=== PATIENT | male | born 1940 | race Caucasian/White ===

== ENCOUNTER 2018-02-13 16:50 | Inpatient (IN) ==
[2018-02-14] MEDS ORDERED: Acetaminophen 325 MG TABLET PO PRN (15:08)
[2018-02-14] MEDS ORDERED: Mag Hydrox/Al Hydrox/Simeth 30 ML UDC PO PRN (15:08)
[2018-02-14] MEDS: *HR* Enoxaparin 80 MG/0.8 ML SYRINGE SQ SCH (17:44)
[2018-02-14] MEDS ORDERED: *HR* Warfarin 5 MG TABLET PO ONE (18:00)
[2018-02-14] MEDS ORDERED: Warfarin perPT PO PRN (18:00)
[2018-02-15] MEDS: *HR* Enoxaparin 80 MG/0.8 ML SYRINGE SQ SCH ×2 (05:09→17:37)
[2018-02-15 05:59] LABS: Basophils # 0.1 K/mcL (0.0-0.2); Basophils % 1.1 %; Eosinophils # 0.8 K/mcL (0.0-0.6); Eosinophils % 6.9 %; Hematocrit 45.9 % (37.5-50.1); Hemoglobin 15.3 g/dL (12.9-16.9); Immature Granulocytes % 0.2 % (0-4); Lymphocytes # 3.5 K/mcL (0.6-4.6); Lymphocytes % 31.1 %; Mean Corpuscular HGB Conc 33.3 g/dL (31.6-35.5); Mean Corpuscular Hemoglobin 32.6 pg (28.0-33.3); Mean Corpuscular Volume 97.9 fL (83.0-100.0); Monocytes # 1.1 K/mcL (0.0-1.3); Monocytes % 9.6 %; Neutrophils # 5.7 K/mcL (1.6-8.9); Platelet Count 293 K/mcL (140-400); Red Blood Count 4.69 M/mcL (4.19-5.50); Red Cell Distribution Width 13.9 % (11.5-14.5); Segmented Neutrophils % 51.1 %
[2018-02-15 06:00] LABS: INR 1.5; Prothrombin Time 16.5 Seconds (9.4-12.1)
[2018-02-15 06:12] LABS: BUN/Creatinine Ratio 14 (6-26); Blood Urea Nitrogen 13 mg/dL (8-23); Calcium 9.3 mg/dL (8.6-10.3); Carbon Dioxide 29 mEq/L (23-29); Chloride 105 mEq/L (98-107); Glucose 93 mg/dL (70-105); Osmolality,Calculated 282 (280-300); Sodium 136 mEq/L (136-145); eGFR For Non-African Americans > 60 (> 60)
[2018-02-15] MEDS: Aspirin Enteric Coated 81 MG Tablet PO SCH (08:08)
[2018-02-15] MEDS: Cholecalciferol (D-3) 1,000 UNIT TABLET PO SCH (08:09)
--- NOTE | 2018-02-15 10:31 | Internal Med History&Physical ---
Addendum entered and electronically signed by Peter Pringle MD 02/15/18 11:59: Omitted from my note below: The patient is in atrial fibrillation, clinically, with an irregularly irregular heartbeat. However, I hear no murmur. Addendum entered and electronically signed by Peter Pringle MD 02/15/18 11:45: I have personally performed a face to face evaluation on this patient. I have reviewed and agree with the care plan. History and Exam by me shows: Patient had a stroke. He states that the main thing was that he could not read and the right side of his vision and has been weak, ever since. He denies dizziness but does note persistent weakness and some visual change persists, as well. He notes no other intermittent symptoms since the stroke. History and physical as below, reviewed with patient. He has a history of atrial fibrillation which is apparently paroxysmal. He denies any chest symptoms or dizziness related. He wears a full plate dentures but has these at home. He has new hearing aids which interfere with his hearing as he is "getting used to them." He was told that he has early cataracts, by his hemodialysis technician. He had a lower abdominal surgery years ago which caused him to have hernias and mesh placement on both sides. Because of this he has a "button" which is coming out and has been there for years. 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 Patient has no complaint of chest discomfort, dyspnea, orthopnea, breathing problems, palpitations, nausea or vomiting, constipation or diarrhea, other changes in bowel habits, heartburn, difficulty with urination, kidney problems or kidney stones, fevers chills or sweats, rash or itching, seizures, headache or lightheadedness, heat or cold intolerance, blood problems or anemia, or other new complaints, except as mentioned above. Review of systems is otherwise negative. Examination: (Except as mentioned above): General: In no apparent distress, alert and oriented 3. Head: Atraumatic and normocephalic. Eyes: Extraocular muscles are intact, pupils equal round and reactive to light and accommodation. Sclerae anicteric. While his eye function seems normal and his visual estrada are abnormal, especially to confrontation. He states that he can see a little bit to his right buttock that it is blurry. Ears: External ears are normal to inspection and hearing is definitely diminished, even with hearing aids in place.. Nose: Patent without lesion noted. Mouth: No intraoral lesions seen. He is edentulous. Neck: Supple with trachea midline. There is no thyromegaly or adenopathy and carotids are 2+ without bruit heard. Respiratory: No use of accessory muscles. Lungs are clear throughout. Normal a irflow. Cardiovascular: Regular rate and rhythm without murmur appreciated. Abdomen: Bowel sounds are normal. No hepatosplenomegaly masses or tenderness. Obese and therefore difficult to palpate deeply. This has a ventral hernia which is easily reducible, spontaneously, and nontender. He has a small skin tag approximately 8 mm in circumference which is seemingly benign. This is located at the right lower quadrant. Extremities: No cyanosis clubbing or edema. Left fourth and fifth digit ampu tation noted. Neurological: A and O 3. Cranial nerves II through XII are intact. No focal deficits and no abnormal movements or postures. Station and gait are normal. Skin: Warm and non-diaphoretic with no lesions noted. Breasts, pelvic and rectal: Not examined. He will be evaluated for safety with ambient dilatation. Physical therapy and occupational therapy as well as recreational therapy will be instituted. I have asked speech to see him once and they will assess need for follow-up. Original Note: Date of Encounter: 02/15/18 Time of Encounter: 10:27 Assessment and Plan (1) CVA (cerebral vascular accident) Current visit: Yes Status: Acute Qualifiers: CVA mechanism: embolism Precerebral and cerebral artery: posterior cerebral artery Laterality of affected vessel: left Qualified Code(s): I63.432 - Cer ebral infarction due to embolism of left posterior cerebral artery (2) Paroxysmal A-fib Current visit: Yes Status: Acute Rate and rhythm controlled. Continue Coumadin and Lovenox. Pharmacy to dose and follow PT/INR (3) Internal carotid artery stenosis Current visit: Yes Status: Acute Carotid duplex from demonstrates right proximal ICA has severe 60 to 79% stenosis and left med ICA has a moderate 40 to 59% stenosis Qualifiers: Laterality: bilateral Qualified Code(s): I65.23 - Occlusion and stenosis of bilateral carotid arteries Internal Medicine - H&P: HPI Admitted From: Hospital to Hospital Transfer Plans for Post Hospital Care: Home History of present illness: Mr. Petty is a 77 year old male admitted to inpatient rehab unit from [facility] and [place] status post CVA of left occipital lobe, posterior medial left temp oral lobe and left PTCA territory. 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 Past medical history includes hypertension, hyperlipidemia, prediabetes, Gerd, vitamin D deficiency, degenerative disc disease in recent biliary stents removed. Patient originally presented to [facility] with decreased vision and right eye. His thought process was slower with slower reactions. He had slight weakness in his right arm and right leg which was present for several months. Patient goal is to return to home with . Patient denies any headache, fever, chills, shortness of breath, chest pain or nausea vomiting diarrhea. Maintaining appetite and hydration. Past Med Surg Social Fam HX - Past Medical History Medical history: no medical history, arthritis, hyperlipidemia, other Additional medical history: hematuria, stomach ulcer, hernia Psychiatric history: no psych history - Past Surgical History Surgical History: cholecystectomy, herniorrhaphy, orthopedic, other, splenectomy, other Additional surgical history: ercp - Social History Smoking Status: Never smoker Smokeless Tobacco Status: No Alcohol use: none Drug use: none - Family History Father Living Status: Hx Family Respiratory Disorders: Yes (emphysema) Sister Living Status: Hx Family Cancer: Yes Hx Family GI Disorders: Yes Mother Living Status: Hx Family GI Disorders: Yes (colitis) Internal Medicine - H&P: Meds Cholecalciferol (Vitamin D3) [Vitamin D3] 2,000 unit PO DAILY 12/16/14 [History] Aspirin [Lo-Dose Aspirin EC] 81 mg PO DAILY 02/24/17 [History] Atorvastatin [Lipitor] 80 mg PO HS 30 Days #60 tablet 02/14/18 [Rx] Enoxaparin [Lovenox *PHARMACY WT BASED*] 70 mg SQ BID 7 Days #14 unit 02/14/18 [Rx] Metoprolol [Lopressor] 25 mg PO BID 30 Days #60 tablet 02/14/18 [Rx] Warfarin [Coumadin] 3 mg PO DAILY@1800 #14 tablet 02/14/18 [Rx] Allergy/AdvReac Type Severity Reaction Status Date / Time No Known Allergies Allergy Verified 01/05/18 10:11 All Systems PM: A 10-system review of systems was performed and is negative for pertinent findings except as documented above in the HPI. - Constitutional Constitutional: no chills, no fever(s), no night sweats - EENT Eyes: no change in vision, no discharge, no pain, no photophobia Ears: no ear discharge, no ear pain, no tinnitus Nose, mouth and throat: no dysphagia, no nasal discharge, no neck pain, no sore throat - Cardiovascular Cardiovascular ROS IM: no chest pain, no diaphoresis, no dyspnea, no lightheadedness, no palpitations, no syncope - Respiratory Respiratory: no cough, no dyspnea, no wheezing, no excessive phlegm production - Gastrointestinal Gastrointestinal: no abdominal pain, no diarrhea, no hematemesis, no hematochezia, no melena, no nausea, no vomiting - Musculoskeletal Musculoskeletal ROS IM: no numbness, no tingling - Integumentary Integumentary IM: no rash, no unusual bruising - Neurological Neurological ROS: no confusion, no convulsions, no focal weakness, no numbness, no tingling, no tremor(s) - Hematologic/Lymphatic Hematologic/Lymphatic: no easy bruising - Constitutional Vitals: Temp Pulse Resp BP Pulse Ox 97.5 F L 96 16 104/62 94 02/15/18 07:06 02/15/18 07:06 02/15/18 07:06 02/15/18 07:06 02/15/18 07:06 General appearance: Present: cooperative, A&O X 3, pleasant, no acute distress, answers questions appropriately - Head Head exam: Present: atraumatic, normocephalic - Eye Eye exam: Present: PERRL, conjuntiva pink, sclera anicteric Pupils: Present: PERRL - Neck Neck exam general surgery: Present: supple, trachea midline. Absent: lymphadenopathy - Respiratory Respiratory exam: Present: CTAB. Absent: accessory muscle use, rales, rhonchi, wheezes - Cardiovascular Cardiovascular exam: Present: RRR, +S1, +S2. Absent: diastolic murmur, gallop, rubs, systolic murmur - GI/Abdominal GI/Abdominal exam: Present: normal bowel sounds, soft, no peritoneal signs. Absent: distended, tenderness - Extremities Exam Extremities exam: Present: warm, radial pulses palpable and symmetrical. Absent: calf tenderness, cyanotic, pedal edema - Neurological Exam Neurological exam: Present: CN II-XII intact, oriented X3, no focal deficits. Absent: pronater drift, facial droop, speech deficit - Skin Skin exam: Present: dry, intact Internal Med - H&P Results - Labs CBC & Chem 7: 02/15/18 05:50 02/15/18 05:50 Labs: Short CBC 02/15/18 Range/Units 05:50 WBC 11.1 (4.3-11.1) K/mcL Hgb 15.3 D (12.9-16.9) g/dL Hct 45.9 (37.5-50.1) % Plt Count 293 (140-400) K/mcL Neutrophils # 5.7 (1.6-8.9) K/mcL BMP 02/15/18 05:50 Sodium 136 Potassium 5.0 Chloride 105 Carbon Dioxide 29 BUN 13 Creatinine 0.90 Glucose 93 Calcium 9.3
[2018-02-15] MEDS: *HR* Warfarin 3 MG TABLET PO SCH (17:34)
[2018-02-16] MEDS: *HR* Enoxaparin 80 MG/0.8 ML SYRINGE SQ SCH ×2 (05:38→17:25)
[2018-02-16 05:42] LABS: INR 1.9; Prothrombin Time 21.1 Seconds (9.4-12.1)
[2018-02-16 05:45] LABS: Activated Partial Thrombo Time 50.1 Seconds (26.0-36.0)
--- NOTE | 2018-02-16 08:06 | Internal Med Progress Note ---
Addendum entered and electronically signed by Glo Lebron 02/17/18 10:24: I have personally performed a face to face evaluation on this patient. I have reviewed and agree with the care plan Original Note: Date of Encounter: 02/16/18 Time of Encounter: 08:04 - Assessment and plan (1) CVA (cerebral vascular accident) Current Visit: Yes Status: Acute Assessment and plan: No acute issues. Patient continues to have a will also with his right eye where he has difficulty focusing on objects. EOMI intact. No visual cut noted. Patient continues to have very slight right hemiparesis at +4/5. Patient reportedly has been progressing well with physical therapy and denies any issues at this time. We will continue with current plan of care. She will follow-up with neurology and ophthalmology Qualifiers: CVA mechanism: embolism Precerebral and cerebral artery: posterior cerebral artery Laterality of affected vessel: left Qualified Code(s): I63.432 - Cerebral infarction due to embolism of left posterior cerebral artery (2) HTN (hypertension) Current Visit: Yes Status: Acute Assessment and plan: Vital signs stable. Blood pressure is been well controlled and will continue with current medications. Qualifiers: Hypertension type: essential hypertension Qualified Code(s): I10 - Essential (primary) hypertension (3) Paroxysmal A-fib Current Visit: Yes Status: Acute Assessment and plan: No acute issues. Patient continues to have irregular heart rate which has a controlled rate less than 100. Denies any palpitations or chest discomforts. We will continue with current medications. His INR is 1.9 and Coumadin is being in managed per pharmacy. - Time Spent With Patient less than 15 minutes - Subjective Interval history: Patient appears relaxed and currently denies any discomforts or shortness of breath. Patient denies any acute neurological changes noted. Patient states she continues to have some visual loss to the right eye which he describes as blurriness when attempting to focus. Patient states that his vision has not changed since his discharge from [facility]. - Constitutional Vitals: Temp Pulse Resp BP Pulse Ox 98.0 F 92 16 101/63 96 02/15/18 19:12 02/15/18 19:12 02/15/18 19:12 02/15/18 19:12 02/15/18 19:12 General appearance: Present: cooperative, A&O X 3, pleasant, no acute distress, answers questions appropriately - Head Head exam: Present: atraumatic, normocephalic - Eye Eye exam: Present: PERRL, conjuntiva pink, sclera anicteric Pupils: Present: PERRL Additional comments: EOMI intact - Neck Neck exam general surgery: Present: supple, trachea midline. Absent: lymphadenopathy - Respiratory Respiratory exam: Present: CTAB. Absent: accessory muscle use, rales, rhonchi, wheezes - Cardiovascular Cardiovascular exam: Present: RRR, +S1, +S2. Absent: diastolic murmur, gallop, rubs, systolic murmur - GI/Abdominal GI/Abdominal exam: Present: normal bowel sounds, soft, no peritoneal signs. Absent: distended, tenderness - Extremities Exam Extremities exam: Present: warm, radial pulses palpable and symmetrical. Absent: calf tenderness, cyanotic, pedal edema - Neurological Exam Neurological exam: Present: CN II-XII intact, oriented X3. Absent: pronater drift, facial droop, speech deficit Additional comments: Patient with complaints of visual loss to the right eye in which she has difficulty focusing. EOMI intact. Very slight right hemiparesis at +4/5 muscle strength. No other focal deficits noted - Skin Skin exam: Present: dry, intact Internal Medicine: Result - Labs CBC & Chem 7: 02/15/18 05:50 02/15/18 05:50 - ABG Interpretation ABG results: PT/INR, D-dimer PT 21.1 Seconds (9.4-12.1) H 02/16/18 05:10 Consult Discharge Plan - Plan Referrals: Maximilian Rees MD [Primary Care Provider] -
[2018-02-16] MEDS: Cholecalciferol (D-3) 1,000 UNIT TABLET PO SCH (10:38)
[2018-02-16] MEDS: Aspirin Enteric Coated 81 MG Tablet PO SCH (10:38)
[2018-02-16] MEDS: *HR* Warfarin 3 MG TABLET PO SCH (17:25)
[2018-02-17] MEDS: *HR* Enoxaparin 80 MG/0.8 ML SYRINGE SQ SCH ×2 (04:54→17:05)
[2018-02-17 05:06] LABS: INR 1.8; Prothrombin Time 20.7 Seconds (9.4-12.1)
[2018-02-17] MEDS: Cholecalciferol (D-3) 1,000 UNIT TABLET PO SCH (10:14)
[2018-02-17] MEDS: Aspirin Enteric Coated 81 MG Tablet PO SCH (10:14)
--- NOTE | 2018-02-17 10:55 | Internal Med Progress Note ---
Date of Encounter: 02/17/18 Time of Encounter: 10:53 - Assessment and plan (1) CVA (cerebral vascular accident) Current Visit: Yes Status: Acute Assessment and plan: No acute issues. Patient continues to have a will also with his right eye where he has difficulty focusing on objects. EOMI intact. No visual cut noted. Patient continues to have very slight right hemiparesis at +4/5. Patient reportedly has been progressing well with physical therapy and denies any issues at this time. We will continue with current plan of care. Patient with possible discharge tomorrow. He will follow-up with neurology and ophthalmology Qualifiers: CVA mechanism: embolism Precerebral and cerebral artery: posterior cerebral artery Laterality of affected vessel: left Qualified Code(s): I63.432 - Cerebral infarction due to embolism of left posterior cerebral artery (2) HTN (hypertension) Current Visit: Yes Status: Acute Assessment and plan: Vital signs stable. Blood pressure is been well controlled and will continue with current medications. Qualifiers: Hypertension type: essential hypertension Qualified Code(s): I10 - Essential (primary) hypertension (3) Paroxysmal A-fib Current Visit: Yes Status: Acute Assessment and plan: No acute issues. Patient continues to have irregular heart rate which has a controlled rate less than 100. Denies any palpitations or chest discomforts. We will continue with current medications. His INR is 1.8 and Coumadin is being in managed per pharmacy. - Subjective Interval history: Patient appears relaxed and currently denies any discomforts or shortness of breath. Patient denies any acute neurological changes noted. Patient states she continues to have some visual loss to the right eye which he describes as blurriness when attempting to focus. Patient states that his vision has not changed since his discharge from [facility]. - Constitutional Vitals: Temp Pulse Resp BP Pulse Ox 98.0 F 65 18 111/71 98 02/17/18 07:24 02/17/18 07:24 02/17/18 07:24 02/17/18 07:24 02/17/18 07:24 General appearance: Present: cooperative, A&O X 3, pleasant, no acute distress, answers questions appropriately - Head Head exam: Present: atraumatic, normocephalic - Eye Eye exam: Present: PERRL, conjuntiva pink, sclera anicteric Pupils: Present: PERRL Additional comments: Patient was complaints of difficulty focusing with right eye. Eyes remain conjugant with normal EOMI - Neck Neck exam general surgery: Present: supple, trachea midline. Absent: lymphadenopathy - Respiratory Respiratory exam: Present: CTAB. Absent: accessory muscle use, rales, rhonchi, wheezes - Cardiovascular Cardiovascular exam: Present: RRR, +S1, +S2. Absent: diastolic murmur, gallop, rubs, systolic murmur - GI/Abdominal GI/Abdominal exam: Present: normal bowel sounds, soft, no peritoneal signs. Absent: distended, tenderness - Extremities Exam Extremities exam: Present: warm, radial pulses palpable and symmetrical. Absent: calf tenderness, cyanotic, pedal edema - Neurological Exam Neurological exam: Present: CN II-XII intact, oriented X3, no focal deficits. Absent: pronater drift, facial droop, speech deficit Additional comments: Patient with complaints of difficulty focusing with right eye. Otherwise eyes remain conjugate with normal EOMI. No facial droop and tongue is midline. No other motor deficits noted on exam. Patient denies any sensory deficits. - Skin Skin exam: Present: dry, intact Internal Medicine: Result - Labs CBC & Chem 7: 02/15/18 05:50 02/15/18 05:50 - ABG Interpretation ABG results: PT/INR, D-dimer PT 20.7 Seconds (9.4-12.1) H 02/17/18 04:36 Consult Discharge Plan - Plan Referrals: Maximilian Rees MD [Primary Care Provider] -
[2018-02-17] MEDS ORDERED: *HR* Warfarin 5 MG TABLET PO ONE (18:00)
[2018-02-18 06:00] LABS: INR 1.9; Prothrombin Time 21.7 Seconds (9.4-12.1)
[2018-02-18 06:02] LABS: Activated Partial Thrombo Time 55.1 Seconds (26.0-36.0)
[2018-02-18] MEDS: *HR* Enoxaparin 80 MG/0.8 ML SYRINGE SQ SCH (06:15)
[2018-02-18 08:10] VITALS: BP 120/62
[2018-02-18] MEDS: Aspirin Enteric Coated 81 MG Tablet PO SCH (08:27)
[2018-02-18] MEDS: Cholecalciferol (D-3) 1,000 UNIT TABLET PO SCH (08:27)
--- NOTE | 2018-02-18 10:14 | Discharge Summary ---
- NOTES TO OUTPATIENT PROVIDER Notes to Outpatient Provider: Pt discharged on coumadin. He will need follow up apt with you. He is given instruction on follow up at coumadin clinic. Orders not resulted at time of discharge: Pending orders 02/28/18 04:00 Activated Partial Thrombo Time [COAG] DAILY Prothrombin Time INR [COAG] DAILY 03/06/18 04:00 Basic Metabolic Panel MO Complete Blood Count [HEME] MO 02/19/18 04:00 Activated Partial Thrombo Time [COAG] DAILY Prothrombin Time INR [COAG] DAILY 02/20/18 04:00 Activated Partial Thrombo Time [COAG] DAILY Basic Metabolic Panel MO Complete Blood Count [HEME] MO Prothrombin Time INR [COAG] DAILY 02/21/18 04:00 Activated Partial Thrombo Time [COAG] DAILY Prothrombin Time INR [COAG] DAILY 02/22/18 04:00 Activated Partial Thrombo Time [COAG] DAILY Prothrombin Time INR [COAG] DAILY 02/23/18 04:00 Activated Partial Thrombo Time [COAG] DAILY Prothrombin Time INR [COAG] DAILY 02/24/18 04:00 Activated Partial Thrombo Time [COAG] DAILY Prothrombin Time INR [COAG] DAILY 02/25/18 04:00 Activated Partial Thrombo Time [COAG] DAILY Prothrombin Time INR [COAG] DAILY 02/26/18 04:00 Activated Partial Thrombo Time [COAG] DAILY Prothrombin Time INR [COAG] DAILY 02/27/18 04:00 Activated Partial Thrombo Time [COAG] DAILY Basic Metabolic Panel MO Complete Blood Count [HEME] MO Prothrombin Time INR [COAG] DAILY Date of Encounter: 02/18/18 Time of Encounter: 10:12 Hospital course: Mr. Petty is a 77 year old male Assessment and Plan (1) CVA (cerebral vascular accident) Current visit: Yes Status: Acute Qualifiers: CVA mechanism: embolism Precerebral and cerebral artery: posterior cerebral artery Laterality of affected vessel: left Qualified Code(s): I63.432 - Cerebral infarction due to embolism of left posterior cerebral artery (2) Paroxysmal A-fib Current visit: Yes Status: Acute Rate and rhythm controlled. bridged on lovenox while here. now will Continue Coumadin and. coumadin clinic to dose and follow PT/INR (3) Internal carotid artery stenosis Current visit: Yes Status: Acute Carotid duplex from demonstrates right proximal ICA has severe 60 to 79% stenosis and left med ICA has a moderate 40 to 59% stenosis Qualifiers: Laterality: bilateral Qualified Code(s): I65.23 - Occlusion and stenosis of bilateral carotid arteries HOSPITAL COURSE Admitted From: Hospital to Hospital Transfer Plans for Post Hospital Care: PT refuses home health or home PT Mr. Petty is a 77 year old male admitted to inpatient rehab unit from [facility] and [place] status post CVA of left occipital lobe, posterior medial left temporal lobe and left PTCA territory. 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 He was found to have right internal carotid stenosis. He agrees to use Coumadin. His has been on coumadin for 14 years and they are familiar with the maintenance. He was bridged with Lovenox 70 BID and coumadin titrated while he was here. No bleeding problems noted. He has discharge InR of 1.9. Patient originally presented to [facility] with decreased vision and right eye. His thought process was slower with slower reactions. He had slight weakness in his right arm and right leg which was present for several months. He participated in therapy here in the rehab unit. He did very well with this and his ambulation. He had no further symptoms or head ache. He does not want home PT or home health. He achieved independent ambulation in therapy. He will follow up with his primary care doc within 2 weeks. He will follow up in coumadin clinic within a week. He is discharged with home medications rx and instruction. He is in stable improved condition. Home Meds Cholecalciferol (Vitamin D3) [Vitamin D3] 2,000 unit PO DAILY 12/16/14 [History] Aspirin [Lo-Dose Aspirin EC] 81 mg PO DAILY 02/24/17 [History] Atorvastatin [Lipitor] 80 mg PO HS 30 Days #60 tablet 02/14/18 [Rx] Metoprolol [Lopressor] 25 mg PO BID 30 Days #60 tablet 02/14/18 [Rx] Warfarin [Coumadin] 5 mg PO DAILY@1800 #14 tablet 02/14/18 [Rx] MVI daily ranitadine 150 mg bid po Allergy/AdvReac Type Severity Reaction Status Date / Time No Known Allergies Allergy Verified 01/05/18 10:11 - Time Spent with Patient Total time spent providing and/or coordinating discharge services: Less than 30 minutes - Discharge Medications Home Medications: Cholecalciferol (Vitamin D3) [Vitamin D3] 2,000 unit PO DAILY 12/16/14 [History] Aspirin [Lo-Dose Aspirin EC] 81 mg PO DAILY 02/24/17 [History] Atorvastatin [Lipitor] 80 mg PO HS 30 Days #60 tablet 02/14/18 [Rx] Metoprolol [Lopressor] 25 mg PO BID 30 Days #60 tablet 02/14/18 [Rx] Warfarin [Coumadin] 3 mg PO DAILY@1800 #14 tablet 02/14/18 [Rx] Multivit, Calc, Min/Folic Acid 02/18/18 [History] Ranitidine HCl 02/18/18 [History] Allergies/Adverse Reactions: Allergy/AdvReac Type Severity Reaction Status Date / Time No Known Allergies Allergy Verified 01/05/18 10:11 Date of admission: 02/14/18 14:50 Primary care physician: Maximilian Rees MD Consults: 02/14/18 14:58 Consult to Occupational Therapy [CONS] Routine Comment: Evaluate, develop and implement POC Reason for Consult: Left CVA Does patient have active BEDREST order?: No Is patient medically & hemodynamically stable?: Yes Consult to Physical Therapy [CONS] Routine Comment: Evaluate, develop and implement POC Reason for Consult: Left CVA Does patient have active BEDREST order?: No Is patient medically & hemodynamically stable?: Yes Consult to Recreational Therapy [CONS] Routine Comment: Evaluate, develop and implement POC Consult to Director Of Estate [CONS] Routine Reason for SW Consult: Left CVA 02/14/18 15:02 Consult to Physical Medicine/Rehab [CONS] Routine Reason for Consult: Left CVA Call Completed: Yes - Constitutional Vitals: Temp Pulse Resp BP Pulse Ox 97.4 F L 57 18 120/62 95 02/18/18 07:13 02/18/18 07:13 02/18/18 07:13 02/18/18 07:13 02/18/18 07:13 General appearance: Present: cooperative, A&O X 3, pleasant, no acute distress, answers questions appropriately - Patient Status Disposition: Home, Self-Care Condition: Good Functional capacity at discharge: independent ambulation Overall status at discharge: patient is progressing back to baseline - Discharge Instructions Follow Up With: Maximilian Rees MD [Primary Care Provider] -
== END 2018-02-18 11:45 | disposition home or self-care (01) | DRG 57 ==
LOC: INPGRE 02-14 14:50